=== PATIENT | female | born 1940 | race African-American/Black ===

== ENCOUNTER 2018-01-06 14:59 | Outpatient (CLI) | payer OTHER ==
[2018-01-06 16:11] LABS: Hemoglobin 13.5 g/dL (12.0-16.0); Mean Corpuscular HGB CONC 32.9 g/dL (32.0-36.0); Mean Corpuscular Hemoglobin 28.5 pg (27.0-31.0); Mean Corpuscular Volume 86.8 fl (81.0-99.0); Mean Platelet Volume 7.2 fL (7.4-10.4); Platelet Count 231 thou/uL (130-400); RBC Distribution Width 14.3 % (11.5-14.5); Red Blood Cell (RBC) Count 4.73 mill/uL (4.20-5.40)
[2018-01-06 16:17] LABS: INR-International Normal Ratio 1.1; PTT 28.1 SEC (22.9-36.1); Prothrombin Time 14.4 SEC (12.0-14.7)
[2018-01-06 16:35] LABS: ALT (SGPT) Less than 7 U/L (8-55); AST (SGOT) 14 U/L (5-34); Alkaline Phosphatase 121 U/L (40-150); Anion Gap 16 mmol/L (10-20); BUN (Urea Nitrogen) 11 mg/dL (9.8-20.1); Bilirubin, Direct 0.4 mg/dL (0.1-0.3); Bilirubin, Total 0.7 mg/dL (0.2-1.2); Calc. Creatinine Clearance 0 mL/min (70-130); Calcium 8.8 mg/dL (7.8-10.44); Carbon Dioxide 23 mmol/L (23-31); Chloride 105 mmol/L (98-107); Estimated GFR-MDRD 74; Glucose 205 mg/dL (83-110); Potassium 3.5 mmol/L (3.5-5.1); Protein, Total 7.8 g/dL (6.0-8.3); Sodium 140 mmol/L (136-145)
--- NOTE | 2018-01-06 16:55 | RAD ---
CHEST PA AND LATERAL: HISTORY: A 77-year-old female for preoperative evaluation for upcoming surgery. FINDINGS: Heart size is within normal limits. The lungs are clear. No pneumonia, edema, or pleural effusion. IMPRESSION: Atherosclerosis of the aorta. No acute intrathoracic disease. POS: OFF
--- NOTE | 2018-01-07 14:03 | EKG ---
Test Reason : Blood Pressure : / mmHG Vent. Rate : 067 BPM Atrial Rate : 067 BPM P-R Int : 180 ms QRS Dur : 080 ms QT Int : 388 ms P-R-T Axes : 062 060 030 degrees QTc Int : 409 ms Normal sinus rhythm Normal ECG Confirmed by ESTELLA BOONE ([id number]) on 01/07/2018 2:03:39 PM Referred By: WESTLEY Confirmed By:ESTELLA BOONE
== END 2018-01-06 15:00 | disposition home or self-care (01) ==
LOC: LABBT 14:59
PROVIDERS: ATTEND Dentist Oral and Maxillofacial Surgery
DX: Z01.818 Encounter for other preprocedural examination (principal); K04.7 Periapical abscess without sinus; M86.9 Osteomyelitis, unspecified; I70.0 Atherosclerosis of aorta
CPT/HCPCS: 71046; 80048; 80076; 85027; 85610; 85730; 93005; 93010

== ENCOUNTER 2018-01-11 06:59 | Day surgery (SDC) | payer MEDICARE, BC ==
[2018-01-11] MEDS ORDERED: Dexamethasone 4 mg/ml Vial ONE (08:09)
[2018-01-11] MEDS ORDERED: Clindamycin/D5W 900 mg/50 ml Premix Bag ONE (08:09)
[2018-01-11] MEDS ORDERED: Chlorhexidine Gluconate 15 ML UDCUP SSP ONE ×2 (09:43→10:58)
[2018-01-11] MEDS ORDERED: Bupivacaine/Epinephrine 0.25% 30 ML VIAL ONE (09:43)
[2018-01-11] MEDS ORDERED: Lidocaine 1% w/Epinephrine 1:200K 30 ML VIAL ONE (09:43)
[2018-01-11] MEDS ORDERED: Hydrocortisone 1% Cream 30 GM TUBE ONE (09:43)
[2018-01-11] MEDS ORDERED: Famotidine/PF 20 mg/2ml Vial ONE (09:47)
[2018-01-11] MEDS ORDERED: Fentanyl 100 MCG/2 ML VIAL ONE ×2 (09:47→12:37)
[2018-01-11] MEDS ORDERED: Promethazine HCl 25 MG/ML VIAL ONE (10:00)
--- NOTE | 2018-01-11 13:13 | OP ---
DATE OF PROCEDURE: 01/11/2018 SURGEON: Dr. Jeramy Campos PREOPERATIVE DIAGNOSES: Left mandibular osteomyelitis, necrotic teeth 18 and 19. POSTOPERATIVE DIAGNOSES: Necrotic teeth 18 and 19, left mandibular osteomyelitis. PROCEDURE PERFORMED: 1. Surgical removal of teeth 18 and 19. 2. Resection of left mandibular osteomyelitis. BRIEF PATIENT HISTORY AND PROCEDURE IN DETAIL: This is a 77-year-old black female with a history of kidney transplant with a several month history of left jaw pain, swelling, and purulent drainage. Ervin amin has been on several courses of antibiotics from her primary care provider. She also complains of p ain. No numbness. 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 T he patient was taken to the operating room, prepped and draped in sterile fashion. A throat pack was placed. Oral cavity had been irrigated with Peridex. Local anesthetic infiltration 1% lidocaine 1: 100,000 epinephrine and 20 mL were given. A full thickness mucoperiosteal flap was elevated from dis penny of tooth #18 to the lower left canine, forceps removal of #19 was attempted, no mobility whatsoev er of the tooth, so this tooth was sectioned and the pieces elevator removal of fragments as necessar y. Cemento- osseous lesion was then encountered with necrotic bone along the lingual cortices of the mandible. This extension of necrotic bone travel distal to the second molar distal main behind, thi s area was curetted out, but there was still extension of necrotic bone distal, but could be reached with a curet from the current flap so a lingual flap was elevated from the bicuspid area of the ramus . A sagittal saw was used to end block resect the cemento-osseous portion of bone and necrotic lingu al cortices from the second bicuspid to distal of the second molar and a football bur was then used t o smooth off bone and smooth off cemento-osseous lesion down the bleeding bone. The inferior alveola r nerve was never visualized; however, many small bone bleeders were cauterized with the Bovie. The area was thoroughly irrigated with Peridex and normal saline, primarily closure was obtained with 4-0 chromic gut. The patient tolerated the procedure well. She had good tissue upon closure. DISPOSITION: The patient was stable, extubated, and transferred to the postop recovery unit. She wi ll be placed in 24-hour observation and to be on no chew diet for 6 weeks. ESTIMATED BLOOD LOSS: 50 mL. ANESTHESIA: General endotracheal anesthesia through nasal ray tube.
[2018-01-11] MEDS ORDERED: Calcium Carbonate 500 MG ChewTAB PO PRN (15:33)
[2018-01-11] MEDS ORDERED: oxyCODONE/Acetaminophen 5 mg/325 mg Tablet PO PRN (15:37)
[2018-01-11] MEDS ORDERED: Nitroglycerin 0.4 MG TAB (25 Tab Bottle) SL PRN (15:40)
[2018-01-11] MEDS ORDERED: Lidocaine 1% PF 5 ML VIAL ONE (16:23)
[2018-01-11] MEDS ORDERED: Succinylcholine Chloride 20 MG/ML 10 ml SYRINGE FS ONE (16:23)
[2018-01-11] MEDS ORDERED: Glycopyrrolate 0.2 MG/ML 5 ML SYRINGE ONE (16:23)
[2018-01-11] MEDS ORDERED: PROPOFOL 200 MG/20 ML VIAL ONE (16:23)
[2018-01-11] MEDS ORDERED: Mycophenolate ER 180 MG TAB PO SCH (16:30)
[2018-01-11 17:16] VITALS: BMI 23.8
[2018-01-11 17:36] VITALS: TEMP 98.5
[2018-01-11 17:38] VITALS: BP 154/80
[2018-01-11] MEDS ORDERED: Clindamycin 150 MG CAP PO SCH (18:00)
[2018-01-11] MEDS ORDERED: Azelastine 137 MCG/Spray 30 ML NS SCH (21:00)
[2018-01-11] MEDS ORDERED: Atorvastatin Calcium 10 MG TAB PO SCH (21:00)
[2018-01-11] MEDS ORDERED: Losartan 25 MG TAB PO SCH (21:00)
[2018-01-11] MEDS ORDERED: Gabapentin 100 MG CAP PO SCH (21:00)
[2018-01-11] MEDS ORDERED: cycloSPORINE, Modified 100 MG CAP PO SCH (21:00)
[2018-01-11] MEDS ORDERED: Acyclovir 200 mg Capsule PO SCH (21:00)
[2018-01-11] MEDS ORDERED: Chlorhexidine Gluconate 15 ML UDCUP SSP SCH (21:00)
[2018-01-12] MEDS ORDERED: Lidocaine 5% Patch TD SCH (09:00)
[2018-01-12] MEDS ORDERED: Potassium Chloride 20 MEQ TAB PO SCH (09:00)
[2018-01-12] MEDS ORDERED: Amlodipine 10 MG TAB PO SCH (09:00)
[2018-01-12] MEDS ORDERED: Ferrous Sulfate 325 MG TAB PO SCH (09:00)
[2018-01-12] MEDS ORDERED: Cyanocobalamin (Vitamin B-12) 1,000 MCG TAB PO SCH (09:00)
[2018-01-12] MEDS ORDERED: Lidocaine Patch Removal 1 EACH TOP SCH (21:00)
== END 2018-01-11 18:45 | disposition home or self-care (01) ==
LOC: SDC 06:59 → UNDOADMOB 13:01 → SURG A 13:01 → SDC 18:45 → UNDODISOB 18:45
PROVIDERS: ATTEND Dentist Oral and Maxillofacial Surgery
PROC: 0CDXXZ1 Extraction of Lower Tooth, Multiple, External Approach (ICD-10-PCS; principal; 2018-01-11)
PROC: 0NBV0ZZ Excision of Left Mandible, Open Approach (ICD-10-PCS; 2018-01-11)
DX: M27.2 Inflammatory conditions of jaws (principal); K04.1 Necrosis of pulp; E11.9 Type 2 diabetes mellitus without complications; Z94.0 Kidney transplant status; Z88.0 Allergy status to penicillin; Z88.1 Allergy status to other antibiotic agents; Z88.2 Allergy status to sulfonamides; Z88.5 Allergy status to narcotic agent; Z88.8 Allergy status to other drugs, medicaments and biological substances; Z79.82 Long term (current) use of aspirin; Z79.899 Other long term (current) drug therapy
CPT/HCPCS: J1100; J2001; J2550; J2704; J3010; J3490; S0028